=== PATIENT | female | born 2000 | race Caucasian/White ===

== ENCOUNTER 2021-01-17 12:24 | Inpatient (IN) ==
[~2021-01-17 12:24] MED LIST: *HR* Nalbuphine 10 MG/ML AMPUL IV PRN; Azithromycin 500 MG in 0.9 % Sodium Chloride 250 ML IVPB ONE; Famotidine 20 MG/2 ML VIAL IVP PRN; Lidocaine 1% 20 ML MDV ID PRN; Metoclopramide 10 MG/2 ML VIAL IVP PRN; Naloxone 0.4 MG/ML INJ IVP PRN; Ondansetron 4 MG/2 ML VIAL IVP PRN
[2021-01-17] MEDS ORDERED: Ringers Solution, Lactated 1,000 ML IVC SCH (12:30)
[2021-01-17] MEDS ORDERED: EPHEDrine 50 MG/ML VIAL IVP PRN (12:59)
[2021-01-17] MEDS ORDERED: Epidural Premix (fent/bupiv) 110 ML EP SCH (13:00)
[2021-01-17 13:20] LABS: Basophils % 0.3 %; Eosinophils # 0.2 K/mcL (0.0-0.6); Eosinophils % 1.6 %; Hematocrit 31.6 % (35.3-44.9); Hemoglobin 9.5 g/dL (11.5-15.4); Immature Granulocytes % 1.6 % (0-4); Lymphocytes # 1.4 K/mcL (0.6-4.6); Lymphocytes % 10.7 %; Mean Corpuscular HGB Conc 30.1 g/dL (31.6-35.5); Mean Corpuscular Hemoglobin 23.5 pg (28.0-33.3); Mean Corpuscular Volume 78.2 fL (83.0-100.0); Mean Platelet Volume 11.5 fL (9.4-12.4); Monocytes % 7.3 %; Neutrophils # 10.2 K/mcL (1.6-8.9); Nucleated Red Blood Cells 0.3 /100 WBC (0); Platelet Count 199 K/mcL (140-400); Red Blood Count 4.04 M/mcL (3.82-4.97); Segmented Neutrophils % 78.5 %
[2021-01-17 13:29] LABS: Amphetamine Screen,Urine Negative ng/mL (Cutoff=1000); Barbiturate Screen,Urine Negative ng/mL (Cutoff=200); Benzodiazepines Screen,Urine Negative ng/mL (Cutoff=200); Cannabinoid Screen,Urine Negative ng/mL (Cutoff = 50); Cocaine Screen,Urine Negative ng/mL (Cutoff= 300); Opiate Screen,Urine Negative ng/mL (Cutoff=300); Phencyclidine Screen,Urine Negative ng/mL (Cutoff=25)
[2021-01-17 13:55] LABS: Influenza A PCR Negative (Negative); Influenza B PCR Negative (Negative); Resp. Syncytial Virus PCR Negative (Negative)
[2021-01-17] MEDS ORDERED: miSOPROStoL 25 MCG TABLET PO ONE (14:42)
[2021-01-17 14:48] LABS: SARS-CoV-2 by PCR (In House) Negative (Negative)
[2021-01-17] MEDS ORDERED: *HR* FentaNYL (PF) 100 MCG/2 ML VIAL ONE (17:40)
[2021-01-17] MEDS ORDERED: Ropivacaine/PF 0.2% 20 ML VIAL ONE (17:40)
[2021-01-17] MEDS ORDERED: Oxytocin 20 units/ LR 1000 mL 20 UNIT/1,000 ML BAG IVC ONE ×2 (18:59→22:16)
[2021-01-17] MEDS ORDERED: Oxytocin 20 units/ LR 1000 mL 20 UNIT/1,000 ML BAG IVC SCH (22:16)
[2021-01-17] MEDS ORDERED: Benzocaine/Menthol 56 GM AEROSOL SPRAY TP PRN (22:16)
[2021-01-17] MEDS ORDERED: Measles/Mumps/Rubella Vacc 0.5 ML VIAL SQ PRN (22:16)
[2021-01-17] MEDS ORDERED: Acetaminophen 325 MG TABLET PO PRN (22:16)
[2021-01-17] MEDS ORDERED: Rho Immune Globulin 1,500 UNIT SYRINGE IM PRN (22:16)
[2021-01-17] MEDS ORDERED: Lanolin 7 G OINT...G. TP PRN (23:31)
[2021-01-18] MEDS: Ibuprofen 600 MG TABLET PO PRN ×2 (00:09→09:04)
[2021-01-18 06:52] LABS: Basophils % 0.2 %; Eosinophils # 0.1 K/mcL (0.0-0.6); Eosinophils % 0.9 %; Hematocrit 28.4 % (35.3-44.9); Hemoglobin 8.5 g/dL (11.5-15.4); Immature Granulocytes % 0.7 % (0-4); Lymphocytes # 1.3 K/mcL (0.6-4.6); Lymphocytes % 9.6 %; Mean Corpuscular HGB Conc 29.9 g/dL (31.6-35.5); Mean Corpuscular Hemoglobin 23.5 pg (28.0-33.3); Mean Corpuscular Volume 78.5 fL (83.0-100.0); Monocytes # 0.9 K/mcL (0.0-1.3); Monocytes % 7.1 %; Neutrophils # 10.8 K/mcL (1.6-8.9); Nucleated Red Blood Cells 0.2 /100 WBC (0); Platelet Count 140 K/mcL (140-400); Red Blood Count 3.62 M/mcL (3.82-4.97); Red Cell Distribution Width 17.1 % (11.5-14.5); Segmented Neutrophils % 81.5 %; White Blood Count 13.3 K/mcL (4.3-11.1)
[2021-01-18] MEDS ORDERED: Prenatal Vit/FA 1 EACH TABLET PO SCH (09:00)
[2021-01-18 15:56] VITALS: BP 121/75
== END 2021-01-18 19:09 | disposition home or self-care (01) | DRG 807 ==
LOC: 1NENULAB → 1NENUOBS 22:45
PROVIDERS: ADMIT Obstetrics & Gynecology; ATTEND Obstetrics & Gynecology

== ENCOUNTER 2022-05-02 00:03 | Inpatient (IN) ==
[~2022-05-02 00:03] MED LIST changes: -Azithromycin 500 MG in 0.9 % Sodium Chloride 250 ML IVPB ONE; -Lidocaine 1% 20 ML MDV ID PRN; -Ondansetron 4 MG/2 ML VIAL IVP PRN; +Oxytocin 30 UNIT/503 ML BAG IVC ONE; +Ringers Solution, Lactated 1,000 ML ONE
[2022-05-02] MEDS ORDERED: Ringers Solution, Lactated 1,000 ML IVC SCH (00:15)
[2022-05-02] MEDS ORDERED: Oxytocin 30 UNIT/503 ML BAG IVC ONE (00:22)
[2022-05-02 00:29] LABS: Basophils % 0.1 %; Eosinophils # 0.1 K/mcL (0.0-0.6); Eosinophils % 0.6 %; Hematocrit 32.4 % (35.3-44.9); Hemoglobin 10.3 g/dL (11.5-15.4); Immature Granulocytes % 1.3 % (0-4); Lymphocytes # 1.5 K/mcL (0.6-4.6); Lymphocytes % 11.2 %; Mean Corpuscular HGB Conc 31.8 g/dL (31.6-35.5); Mean Corpuscular Hemoglobin 25.9 pg (28.0-33.3); Mean Corpuscular Volume 81.6 fL (83.0-100.0); Monocytes # 1.1 K/mcL (0.0-1.3); Monocytes % 8.1 %; Neutrophils # 10.7 K/mcL (1.6-8.9); Nucleated Red Blood Cells 0.1 /100 WBC (0); Platelet Count 202 K/mcL (140-400); Red Blood Count 3.97 M/mcL (3.82-4.97); Red Cell Distribution Width 15.5 % (11.5-14.5); Segmented Neutrophils % 78.7 %; White Blood Count 13.5 K/mcL (4.3-11.1)
[2022-05-02] MEDS ORDERED: *HR* FentaNYL (PF) 100 MCG/2 ML VIAL ONE (01:09)
[2022-05-02] MEDS ORDERED: Ropivacaine/PF 0.2% 20 ML VIAL ONE (01:09)
[2022-05-02 01:17] LABS: Amphetamine Screen,Urine Negative ng/mL (Cutoff=1000); Barbiturate Screen,Urine Negative ng/mL (Cutoff=200); Benzodiazepines Screen,Urine Negative ng/mL (Cutoff=200); Cannabinoid Screen,Urine Negative ng/mL (Cutoff = 50); Cocaine Screen,Urine Negative ng/mL (Cutoff= 300); Opiate Screen,Urine Negative ng/mL (Cutoff=300); Phencyclidine Screen,Urine Negative ng/mL (Cutoff=25)
[2022-05-02] MEDS ORDERED: Ondansetron ODT 4 MG TAB.RAPDIS SL PRN (05:10)
[2022-05-02] MEDS ORDERED: Lanolin 7 G OINT...G. TP PRN (05:10)
[2022-05-02] MEDS ORDERED: OXYTOCIN/RINGERS LACTATE 10 UNIT/166.6 ML BAG IVC ONE (05:10)
[2022-05-02] MEDS ORDERED: Benzocaine/Menthol 56 GM AEROSOL SPRAY TP PRN (05:10)
[2022-05-02] MEDS ORDERED: Rho Immune Globulin 1,500 UNIT SYRINGE IM PRN (05:10)
[2022-05-02] MEDS ORDERED: Measles/Mumps/Rubella Vacc 0.5 ML VIAL SQ PRN (05:10)
[2022-05-02] MEDS ORDERED: Oxytocin 30 UNIT/503 ML BAG IVC SCH (05:10)
[2022-05-02] MEDS: Ibuprofen 600 MG TABLET PO SCH ×3 (05:47→17:42)
[2022-05-02] MEDS: Acetaminophen 325 MG TABLET PO SCH ×3 (05:47→17:41)
[2022-05-02] MEDS: Prenatal Vit/FA 1 EACH TABLET PO SCH (09:37)
[2022-05-02 15:26] VITALS: O2SAT 99
[2022-05-03] MEDS: Ibuprofen 600 MG TABLET PO SCH ×2 (01:35→08:40)
[2022-05-03] MEDS: Acetaminophen 325 MG TABLET PO SCH ×2 (01:35→08:40)
[2022-05-03 07:39] VITALS: BP 117/74; PULSE 76; TEMP 97.7
[2022-05-03] MEDS: Prenatal Vit/FA 1 EACH TABLET PO SCH (08:40)
== END 2022-05-03 11:15 | disposition home or self-care (01) | DRG 807 ==
LOC: 1NENULAB → 1NENUOBS 04:24
PROVIDERS: ADMIT Obstetrics & Gynecology; ATTEND Obstetrics & Gynecology